=== PATIENT | male | born 1990 | race Two or more races ===

== ENCOUNTER 2020-02-23 19:29 | Emergency (ER) | payer MEDICAID ==
[~2020-02-23] VITALS: Ht 165.1 cm; Wt 64.0 kg
[2020-02-23 19:33] VITALS: BP 126/73
[2020-02-23] MEDS ORDERED: KETOROLAC 30MG/ML VIAL IM ONE (20:15)
== END 2020-02-23 22:21 | disposition home or self-care (01) ==
LOC: ER 19:29
DX: M54.2 Cervicalgia (principal); V49.49XA Driver injured in collision with other motor vehicles in traffic accident, initial encounter; Y93.89 Activity, other specified; Y92.89 Other specified places as the place of occurrence of the external cause; Y99.8 Other external cause status
CPT/HCPCS: 72040; 96372; 99283; J1885